=== PATIENT | male | born 1945 | race Caucasian/White ===

== ENCOUNTER 2021-06-07 14:00 | Outpatient (CLI) | payer MEDICARE ==
[2021-06-07 15:34] LABS: Hemoglobin 16.3 g/dL (13.5-17.5); Mean Corpuscular HGB CONC 34.2 g/dL (32.0-36.0); Mean Corpuscular Hemoglobin 32.6 pg (27.0-33.0); Mean Corpuscular Volume 95.2 fl (81.2-95.1); Mean Platelet Volume 10.4 fl (7.4-10.4); Platelet Count 258 10x3/uL (150-450); RBC Distribution Width 12.5 % (11.5-14.5); White Blood Cell (WBC) Count 9.6 10x3/uL (3.5-10.5)
[2021-06-07 15:59] LABS: Anion Gap 15 mmol/L (10-20); BUN (Urea Nitrogen) 17 mg/dL (8.4-25.7); Calc. Creatinine Clearance 0 mL/min (70-130); Calcium 10.1 mg/dL (7.8-10.44); Carbon Dioxide 26 mmol/L (23-31); Chloride 105 mmol/L (98-107); Glucose 142 mg/dL (83-110); Potassium 4.7 mmol/L (3.5-5.1); Sodium 141 mmol/L (136-145)
[2021-06-08 00:40] LABS: SARS-CoV-2 PCR by NAA Not Detected (NotDetected)
== END 2021-06-07 14:01 | disposition home or self-care (01) ==
LOC: LABBT 14:00
PROVIDERS: ATTEND Neurological Surgery
DX: Z01.818 Encounter for other preprocedural examination (principal); M54.16 Radiculopathy, lumbar region; Z20.822 Contact with and (suspected) exposure to COVID-19
CPT/HCPCS: 80048; 85027; 93005; U0003; U0005; 93010

== ENCOUNTER 2021-06-19 11:26 | Outpatient (CLI) | payer MEDICARE ==
[2021-06-20 00:16] LABS: SARS-CoV-2 PCR by NAA Not Detected (NotDetected)
== END 2021-06-19 11:27 | disposition home or self-care (01) ==
LOC: LABBT 11:26
PROVIDERS: ATTEND Neurological Surgery
DX: Z01.812 Encounter for preprocedural laboratory examination (principal); Z20.822 Contact with and (suspected) exposure to COVID-19
CPT/HCPCS: U0003; U0005

== ENCOUNTER 2021-06-22 05:52 | Observation (INO) | payer MEDICARE ==
[2021-06-22] MEDS ORDERED: ceFAZolin 2 GM/DEX 5% 100 ML BAG ONE (06:13)
[2021-06-22] MEDS ORDERED: Neomycin-Polymyxin 1 ML AMP ONE (06:28)
[2021-06-22] MEDS ORDERED: Fentanyl 100 MCG/2 ML VIAL ONE ×4 (06:50→11:05)
[2021-06-22] MEDS ORDERED: Midazolam HCl 2 mg/2 ml Vial ONE (07:13)
[2021-06-22] MEDS ORDERED: Ondansetron PF 4 MG/2 ML Vial ONE ×2 (07:24→08:30)
[2021-06-22] MEDS ORDERED: PROPOFOL 200 MG/20 ML VIAL ONE (07:24)
[2021-06-22] MEDS ORDERED: Lidocaine 1% PF 5 ML VIAL ONE (07:24)
[2021-06-22] MEDS ORDERED: Rocuronium Bromide 10 MG/ML (10ML VIAL) ONE (07:24)
[2021-06-22] MEDS ORDERED: Glycopyrrolate 0.2 MG/ML 5 ML SYRINGE ONE (07:24)
[2021-06-22] MEDS ORDERED: Phenylephrine 10 MG/ML VIAL ONE (07:24)
[2021-06-22] MEDS ORDERED: SUGAMMADEX SODIUM 200 MG/2 ML VIAL ONE ×2 (08:48→08:58)
[2021-06-22] MEDS ORDERED: Tamsulosin HCl 0.4 MG CAP ONE (09:40)
[2021-06-22] MEDS ORDERED: HYDROmorphone 0.5 MG/0.5 ML SYRINGE ONE ×2 (09:56→10:41)
[2021-06-22] MEDS ORDERED: Morphine 4 MG/ML VIAL SLOW IVP PRN ×2 (14:27→14:30)
[2021-06-22] MEDS ORDERED: Sodium Chloride 0.9% 1,000 ML IV SCH (14:30)
[2021-06-22] MEDS ORDERED: Ondansetron PF 4 MG/2 ML Vial IM PRN (14:30)
[2021-06-22] MEDS ORDERED: Mag-Al 1200 mg/1200 mg/30 ML UDCUP PO PRN (14:30)
[2021-06-22] MEDS ORDERED: Acetaminophen/Codeine 30-300mg Tablet PO PRN (14:30)
[2021-06-22] MEDS ORDERED: Promethazine HCl 25 MG/ML VIAL IM PRN (14:30)
[2021-06-22] MEDS ORDERED: traMADol HCl 50 MG TAB PO PRN ×2 (14:30)
[2021-06-22] MEDS ORDERED: Promethazine HCl 12.5 MG SUPP PR PRN (14:30)
[2021-06-22] MEDS ORDERED: diphenhydrAMINE 50 MG/ML VIAL IVP PRN (14:30)
[2021-06-22] MEDS ORDERED: Promethazine 25 MG TAB PO PRN (14:30)
[2021-06-22] MEDS ORDERED: diphenhydrAMINE 25 MG CAP PO PRN (14:30)
[2021-06-22] MEDS ORDERED: tiZANidine HCl 4 MG TAB PO PRN (14:30)
[2021-06-22] MEDS ORDERED: Milk Of Magnesia 30 ML UDCUP PO PRN (14:30)
[2021-06-22] MEDS: ceFAZolin Sodium/D5W 2 GM in Premix Bag 1 BAG IVPB SCH ×2 (14:52→22:51)
[2021-06-22 16:57] VITALS: BMI 33.9
[2021-06-22] MEDS: Acetaminophen/Codeine 30-300mg Tablet PO PRN ×2 (17:27→20:34)
[2021-06-22] MEDS: metFORMIN 500 MG TAB PO SCH (17:28)
[2021-06-22] MEDS ORDERED: Rosuvastatin 10 MG TAB PO SCH (21:00)
[2021-06-22] MEDS ORDERED: Empagliflozin 25 MG TAB PO SCH (21:00)
[2021-06-23] MEDS ORDERED: Dextrose 50% Abboject 50 ML SYRINGE SLOW IVP PRN (00:27)
[2021-06-23] MEDS ORDERED: Dextrose 5% in Water 1,000 ML IV PRN (00:27)
[2021-06-23] MEDS ORDERED: HumaLOG 300 UNITS/3 ML VIAL SC PRN ×2 (00:27)
[2021-06-23] MEDS ORDERED: Sodium Chloride 0.9% 500 ML IV SCH (01:00)
[2021-06-23] MEDS: Acetaminophen/Codeine 30-300mg Tablet PO PRN ×2 (01:14→08:00)
[2021-06-23] MEDS ORDERED: Sodium Chloride 0.9% 1,000 ML IV SCH ×2 (01:30→06:30)
[2021-06-23 04:40] VITALS: BP 97/62
[2021-06-23 05:08] VITALS: TEMP 97.8
[2021-06-23] MEDS ORDERED: Tamsulosin HCl 0.4 MG CAP PO SCH (06:00)
[2021-06-23 06:40] LABS: Hemoglobin 14.8 g/dL (14.0-18.0); Mean Corpuscular HGB CONC 34.6 g/dL (32.0-36.0); Mean Corpuscular Hemoglobin 34.2 pg (27.0-31.0); Mean Corpuscular Volume 98.9 fL (78.0-98.0); Mean Platelet Volume 7.8 fL (7.4-10.4); Platelet Count 218 thou/uL (130-400); RBC Distribution Width 11.9 % (11.5-14.5); Red Blood Cell (RBC) Count 4.32 mill/uL (4.70-6.10); White Blood Cell (WBC) Count 10.2 thou/uL (4.8-10.8)
[2021-06-23 06:58] LABS: Anion Gap 12 mmol/L (10-20); BUN (Urea Nitrogen) 15 mg/dL (8.4-25.7); Calc. Creatinine Clearance 97 mL/min (70-130); Calcium 9.4 mg/dL (7.8-10.44); Carbon Dioxide 26 mmol/L (23-31); Chloride 103 mmol/L (98-107); Glucose 168 mg/dL (83-110); Potassium 4.3 mmol/L (3.5-5.1); Sodium 137 mmol/L (136-145)
[2021-06-23] MEDS ORDERED: Ketorolac Tromethamine 30 MG/ML VIAL IVP PRN (07:32)
[2021-06-23] MEDS ORDERED: Acetaminophen 500 MG TAB PO PRN (07:33)
[2021-06-23] MEDS: metFORMIN 500 MG TAB PO SCH (08:01)
[2021-06-23] MEDS ORDERED: Empagliflozin 25 MG TAB PO SCH (09:00)
[2021-06-23] MEDS ORDERED: Losartan 25 MG TAB PO SCH (09:00)
[2021-06-23] MEDS ORDERED: SEMAGLUTIDE 14 MG PO SCH (09:00)
[2021-06-23 09:41] LABS: Band 7 % (5-11); Lymphocytes 18 % (21-51); MDiff Complete? YES; Monocytes 15 % (0-10); Neutrophil 59 % (42-75); RBC Morphology Normal; Reactive Lymphocytes 1 % (0-10)
[2021-06-25] MEDS ORDERED: FLU VACC QS2021-22(65YR UP)/PF 240 MCG/0.7 ML SYRINGE IM ONE (17:15)
== END 2021-06-23 09:05 | disposition home or self-care (01) ==
LOC: SDC 05:52 → SURG B 09:34
PROVIDERS: ADMIT Neurological Surgery; ATTEND Neurological Surgery
PROC: 0SG00J1 Fusion of Lumbar Vertebral Joint with Synthetic Substitute, Posterior Approach, Posterior Column, Open Approach (ICD-10-PCS; principal; 2021-06-22)
PROC: 01NB0ZZ Release Lumbar Nerve, Open Approach (ICD-10-PCS; 2021-06-22)
DX: M47.26 Other spondylosis with radiculopathy, lumbar region (principal); Z79.84 Long term (current) use of oral hypoglycemic drugs; Z79.899 Other long term (current) drug therapy; Z95.5 Presence of coronary angioplasty implant and graft
CPT/HCPCS: 20930; 20936; 22612; 22840; 63005; 76000; 80048; 82962; 85025; 96374; 97139; C1713 ×4; C1768; G0378 ×2; 36416; J1170; J2250; J2270; J2370; J2405; J2704; J3010; J3370; J7030; J7050

== ENCOUNTER 2021-07-20 08:47 | Outpatient (CLI) | payer MEDICARE | END 2021-07-20 08:48 | disposition home or self-care (01) | LOC: TBSIIMAG 08:47 | PROVIDERS: ATTEND Neurological Surgery | DX: M47.26 Other spondylosis with radiculopathy, lumbar region (principal); Z98.890 Other specified postprocedural states | CPT/HCPCS: 72100 ==

== ENCOUNTER 2021-12-06 07:54 | Outpatient (CLI) | payer MEDICARE | END 2021-12-06 07:55 | disposition home or self-care (01) | LOC: TBSIIMAG 07:54 | PROVIDERS: ATTEND Neurological Surgery | DX: M51.16 Intervertebral disc disorders with radiculopathy, lumbar region (principal) | CPT/HCPCS: 72148 ==

== ENCOUNTER 2021-12-31 16:01 | Inpatient (IN) | payer MEDICARE ==
[2021-12-31] MEDS ORDERED: Morphine 4 MG/ML VIAL ONE (18:03)
[2021-12-31] MEDS ORDERED: traMADol HCl 50 MG TAB PO PRN (20:27)
[2021-12-31] MEDS ORDERED: Ondansetron PF 4 MG/2 ML Vial IVP PRN (20:27)
[2021-12-31] MEDS ORDERED: Morphine 2 MG/ML VIAL SLOW IVP PRN (20:27)
[2021-12-31] MEDS ORDERED: Milk Of Magnesia 30 ML UDCUP PO PRN (20:27)
[2021-12-31] MEDS ORDERED: Cyclobenzaprine 10 MG TAB PO PRN (20:27)
[2021-12-31] MEDS ORDERED: Promethazine 25 MG TAB PO PRN (20:27)
[2021-12-31] MEDS ORDERED: HYDROcodone/Acetaminophen 10/325 mg Tablet PO PRN (20:27)
[2021-12-31] MEDS ORDERED: Mag-Al 1200 mg/1200 mg/30 ML UDCUP PO PRN (20:27)
[2021-12-31] MEDS ORDERED: Dextrose 5% in Water 1,000 ML IV PRN (20:38)
[2021-12-31] MEDS ORDERED: Dextrose 50% Abboject 50 ML SYRINGE SLOW IVP PRN (20:38)
[2021-12-31] MEDS ORDERED: HumaLOG 300 UNITS/3 ML VIAL SC PRN (20:38)
[2021-12-31] MEDS: Empagliflozin 25 MG TAB PO SCH (21:58)
[2021-12-31 22:18] VITALS: BMI 34.2
[2021-12-31] MEDS: Sodium Chloride 0.9% 1,000 ML IV SCH (22:21)
[2022-01-01] MEDS: HYDROcodone/Acetaminophen 10/325 mg Tablet PO PRN ×2 (03:56→15:40)
[2022-01-01] MEDS ORDERED: Promethazine HCl 25 MG/ML VIAL IM PRN (10:43)
[2022-01-01] MEDS ORDERED: Promethazine HCl 25 MG/ML VIAL IVPB PRN (10:43)
[2022-01-01] MEDS ORDERED: Ondansetron HCl/PF 4 MG/2 ML Vial IVP PRN (10:43)
[2022-01-01] MEDS ORDERED: CEFAZOLIN 2 GM in Sodium Chloride 0.9% 100 ML IVPB SCH (11:00)
[2022-01-01] MEDS: metFORMIN 500 MG TAB PO SCH ×2 (11:04→15:40)
[2022-01-01] MEDS: Sodium Chloride 0.9% 1,000 ML IV SCH (11:04)
[2022-01-01] MEDS ORDERED: CEFAZOLIN 2 GM VIAL ONE (11:05)
[2022-01-01] MEDS ORDERED: Sodium Chloride 0.9% 100 ML ONE (11:05)
[2022-01-01] MEDS ORDERED: Propofol 500 MG/50 ML VIAL ONE (11:07)
[2022-01-01] MEDS ORDERED: HYDROmorphone 2 MG/ML VIAL ONE (11:07)
[2022-01-01] MEDS ORDERED: Rocuronium Bromide 10 MG/ML (10ML VIAL) ONE (11:16)
[2022-01-01] MEDS ORDERED: PHENYLEPHRINE-NS 100 MCG/ML 10 ML SYRINGE ONE (11:16)
[2022-01-01] MEDS ORDERED: Ondansetron PF 4 MG/2 ML Vial ONE (11:16)
[2022-01-01] MEDS ORDERED: PROPOFOL 200 MG/20 ML VIAL ONE (11:16)
[2022-01-01] MEDS ORDERED: Esmolol 100 MG/10 ML VIAL ONE (11:16)
[2022-01-01] MEDS ORDERED: Lidocaine 1% PF 5 ML VIAL ONE (11:16)
[2022-01-01] MEDS ORDERED: Glycopyrrolate 0.2 MG/ML 5 ML SYRINGE ONE (11:16)
[2022-01-01] MEDS ORDERED: Ketorolac Tromethamine 30 MG/ML VIAL ONE (11:16)
[2022-01-01] MEDS ORDERED: Dexamethasone 20 MG/5 ML VIAL ONE (11:16)
[2022-01-01] MEDS ORDERED: Fentanyl 100 MCG/2 ML VIAL ONE (13:32)
[2022-01-01] MEDS: Empagliflozin 25 MG TAB PO SCH (21:10)
[2022-01-02] MEDS: Sodium Chloride 0.9% 1,000 ML IV SCH (00:22)
[2022-01-02] MEDS: HYDROcodone/Acetaminophen 10/325 mg Tablet PO PRN (03:27)
[2022-01-02 08:32] VITALS: BP 105/63; TEMP 98.2
[2022-01-02] MEDS: metFORMIN 500 MG TAB PO SCH (09:06)
== END 2022-01-02 11:12 | disposition home or self-care (01) | DRG 460 ==
LOC: ERS 16:01 → SJJU 17:48
PROVIDERS: ADMIT Neurological Surgery; ATTEND Neurological Surgery
PROC: 0SG1071 Fusion of 2 or more Lumbar Vertebral Joints with Autologous Tissue Substitute, Posterior Approach, Posterior Column, Open Approach (ICD-10-PCS; principal; 2022-01-01)
PROC: 0SB20ZZ Excision of Lumbar Vertebral Disc, Open Approach (ICD-10-PCS; 2022-01-01)
PROC: 01NB0ZZ Release Lumbar Nerve, Open Approach (ICD-10-PCS; 2022-01-01)
PROC: 0QP004Z Removal of Internal Fixation Device from Lumbar Vertebra, Open Approach (ICD-10-PCS; 2022-01-01)
DX: M51.16 Intervertebral disc disorders with radiculopathy, lumbar region (principal); E78.5 Hyperlipidemia, unspecified; E11.9 Type 2 diabetes mellitus without complications; I10 Essential (primary) hypertension; I25.10 Atherosclerotic heart disease of native coronary artery without angina pectoris; Z95.5 Presence of coronary angioplasty implant and graft; Z79.899 Other long term (current) drug therapy; Z79.84 Long term (current) use of oral hypoglycemic drugs; Z82.49 Family history of ischemic heart disease and other diseases of the circulatory system
CPT/HCPCS: 36416; 76000; 96374; C1713; C1768; J0690; J1100; J1170; J1885; J2270; J2405; J2704; J3010; J3370; J3490; J7050